=== PATIENT | male | born 1960 | race African-American/Black ===

== ENCOUNTER 2018-11-24 15:51 | Emergency (ER) | payer OTHER ==
[~2018-11-24] VITALS: Ht 172.7 cm; Wt 72.6 kg
[2018-11-24] MEDS ORDERED: HYDRALAZINE 2525 MG PO (15:58)
[2018-11-24] MEDS ORDERED: AMARYL4 MG PO (15:58)
[2018-11-24] MEDS ORDERED: CATAPRES0.2 MG PO (15:59)
[2018-11-24] MEDS ORDERED: COREG25 MG PO (15:59)
[2018-11-24] MEDS ORDERED: PROTONIX40 M1 PO (16:00)
[2018-11-24] MEDS ORDERED: CARDURA4 MG PO (16:00)
[2018-11-24] MEDS ORDERED: NORVASC5 MG PO (16:00)
[2018-11-24] MEDS ORDERED: RENA-VITE TABL0.8 MG PO (16:01)
[2018-11-24] MEDS ORDERED: RENVELA800 MG PO (16:01)
[2018-11-24] MEDS ORDERED: MUPIROCIN15 GM TOP (16:33)
[2018-11-24 17:05] VITALS: BP 130/94
== END 2018-11-24 17:00 | disposition home or self-care (01) ==
LOC: ER 15:51
DX: R22.31 Localized swelling, mass and lump, right upper limb (principal)

== ENCOUNTER → 2020-09-12 | Outpatient (CLI) | payer OTHER ==
[~2020-09-12] MED LIST: AMARYL4 MG PO; CARDURA4 MG PO; CATAPRES0.2 MG PO; COREG25 MG PO; HYDRALAZINE 2525 MG PO; MUPIROCIN15 GM TOP; NORVASC5 MG PO; PROTONIX40 M1 PO; RENA-VITE TABL0.8 MG PO; RENVELA800 MG PO
== END ==
LOC: HYPER 12:15
PROVIDERS: ATTEND Emergency Medicine Emergency Medical Services
DX: T81.31XA Disruption of external operation (surgical) wound, not elsewhere classified, initial encounter (principal); S81.852A Open bite, left lower leg, initial encounter; E11.622 Type 2 diabetes mellitus with other skin ulcer; L97.822 Non-pressure chronic ulcer of other part of left lower leg with fat layer exposed; E11.22 Type 2 diabetes mellitus with diabetic chronic kidney disease; I13.2 Hypertensive heart and chronic kidney disease with heart failure and with stage 5 chronic kidney disease, or end stage renal disease; N18.6 End stage renal disease; I50.9 Heart failure, unspecified; I42.9 Cardiomyopathy, unspecified; K21.9 Gastro-esophageal reflux disease without esophagitis; Z99.2 Dependence on renal dialysis; Z98.890 Other specified postprocedural states; Z79.84 Long term (current) use of oral hypoglycemic drugs; Z79.82 Long term (current) use of aspirin; W54.0XXA Bitten by dog, initial encounter; Y93.89 Activity, other specified; Y92.89 Other specified places as the place of occurrence of the external cause; Y99.8 Other external cause status; Y92.238 Other place in hospital as the place of occurrence of the external cause; Y83.8 Other surgical procedures as the cause of abnormal reaction of the patient, or of later complication, without mention of misadventure at the time of the procedure

== ENCOUNTER → 2020-10-08 | Outpatient (CLI) | payer OTHER | LOC: HYPER 07:54 | PROVIDERS: ATTEND Emergency Medicine Emergency Medical Services | DX: T81.31XD Disruption of external operation (surgical) wound, not elsewhere classified, subsequent encounter (principal); S81.852D Open bite, left lower leg, subsequent encounter; E11.622 Type 2 diabetes mellitus with other skin ulcer; L97.822 Non-pressure chronic ulcer of other part of left lower leg with fat layer exposed; E11.22 Type 2 diabetes mellitus with diabetic chronic kidney disease; I13.2 Hypertensive heart and chronic kidney disease with heart failure and with stage 5 chronic kidney disease, or end stage renal disease; N18.6 End stage renal disease; I50.9 Heart failure, unspecified; I42.9 Cardiomyopathy, unspecified; K21.9 Gastro-esophageal reflux disease without esophagitis; Z99.2 Dependence on renal dialysis; Z98.890 Other specified postprocedural states; Z79.84 Long term (current) use of oral hypoglycemic drugs; Z79.82 Long term (current) use of aspirin; W54.0XXD Bitten by dog, subsequent encounter; Y83.8 Other surgical procedures as the cause of abnormal reaction of the patient, or of later complication, without mention of misadventure at the time of the procedure ==